=== PATIENT | female | born 1945 | race Caucasian/White ===

== ENCOUNTER 2019-07-23 11:20 | Outpatient (CLI) | payer MEDICARE, SELFPAY ==
[2019-07-23 11:40] LABS: Add Urine Microscopic? YES; Appearance Urine Clear (Clear); Basophils Absolute Auto 0.11 K/mm3 (0.00-0.10); Basophils Percent Auto 1.7 % (0.0-1.0); Bilirubin Urine Negative (Negative); Blood Urine Negative (Negative); Color Urine Yellow (Yellow); Eosinophils Absolute Auto 0.39 K/mm3 (0.02-0.50); Glucose Urine UA Negative (Negative); Hematocrit 42.4 % (35.0-42.0); Hemoglobin 13.6 g/dL (11.7-13.8); Immature Granulocyte Absolute 0.02 K/mm3 (0.00-0.00); Immature Granulocyte Percent A 0.3 % (0.0-0.0); Ketones Urine Negative (Negative); Leukocyte Esterase Ur 1+ LEU/UL (Negative); Lymphocytes Absolute Auto 1.76 K/mm3 (1.10-4.50); Mean Corpuscular HGB Conc 32.1 g/dL (32.0-36.0); Mean Corpuscular Hemoglobin 28.2 pg (27.0-31.0); Monocytes Absolute Auto 0.83 K/mm3 (0.10-0.90); Monocytes Percent Auto 12.7 % (2.0-11.0); Neutrophils Absolute Auto 3.4 K/mm3 (1.7-7.2); Neutrophils Percent Auto 52.3 % (50.0-70.0); Nitrate Urine Negative (Negative); Platelet Count Result 201 K/mm3 (150-420); Protein Urine Negative (Negative); Red Blood Count 4.82 M/mm3 (4.20-5.40); Red Cell Distribution Width 13.5 % (11.6-14.4); Specific Grav Ur 1.025 (1.010-1.020); Urobilinogen Urine 0.2 mg/dL (0.2-1.0); White Blood Count 6.5 K/mm3 (4.8-10.8); pH Urine 5.5 (5.0-8.0)
[2019-07-23 11:59] LABS: Bacteria Urine 1+ /hpf; RBC Urine None seen /hpf (0-2); Squamous Epithelial Cell Urine Few /hpf (Few); WBC Urine 0-3 /hpf (0-3)
[2019-07-23 13:14] LABS: Albumin Level 4.1 g/dL (3.4-5.0); Anion Gap 14.9 mmol/L (7-16); Blood Urea Nitrogen 27 mg/dL (7-18); Carbon Dioxide 28 mmol/L (21-32); Chloride 103 mmol/L (98-108); Estimated Glomerular Filt Rate 53; Glucose 129 mg/dL (70-99); Osmolality Calculated 299 mOsm/kg (285-295); Phosphorus 3.7 mg/dL (2.6-4.7); Potassium 4.9 mmol/L (3.5-5.1); Sodium 141 mmol/L (136-145)
== END 2019-07-23 11:21 | disposition home or self-care (01) ==
PROVIDERS: PCP Family Medicine
DX: I12.0 Hypertensive chronic kidney disease with stage 5 chronic kidney disease or end stage renal disease (principal); R82.90 Unspecified abnormal findings in urine
CPT/HCPCS: 36415; 80069; 81001; 85025; 87086

== ENCOUNTER 2019-10-11 12:49 | Outpatient (CLI) | payer MEDICARE, BC, SELFPAY ==
--- NOTE | ~2019-10-11 | XR_ITS ---
EXAMINATION: XR knee RT 3V DATE: 10/11/2019 13:16 INDICATION: Right knee arthroplasty. TECHNIQUE: 3 views of right knee were obtained. COMPARISON: Right knee radiographs 02/04/2017 FINDINGS: There is a total right knee arthroplasty without resurfacing in near-anatomic alignment. No periprosthetic lucency to suggest loosening or infection. No fracture. There is moderate patellofemo ral compartment osteoarthritis. No knee joint effusion. IMPRESSION: 1. Total right knee arthroplasty in near-anatomic alignment. 2. Moderate patellofemoral compartment osteoarthritis. Reviewed, dictated and finalized at location A.
--- NOTE | ~2019-10-11 | MM_ITS ---
EXAMINATION: MM screening isha BI w ashleigh HISTORY: Screening mammogram TECHNIQUE: Craniocaudal and mediolateral oblique 3-D tomosynthesis images were obtained and synthetic 2-D images were generated. CAD analysis was submitted and interpreted. COMPARISON: Comparison to multiple prior studies sequentially, with oldest reviewed study dated 07/08. BREAST PARENCHYMAL COMPOSITION: There are scattered areas of fibroglandular density. FINDINGS: Stable appearance to left breast masses. There is no evidence of suspicious mass, calcifica tion, or architectural distortion to suggest malignancy in either breast. There has been no suspiciou s interval change. IMPRESSION: 1. No mammographic evidence of malignancy. 2. Recommend routine screening mammography in one year. BI-RADS Category 2: Benign finding(s). Reviewed, dictated and finalized at location A.
--- NOTE | ~2019-10-11 | XR_ITS ---
EXAMINATION: XR knee LT 3V DATE: 10/11/2019 13:16 INDICATION: Left knee arthroplasty. TECHNIQUE: 3 views of left knee were obtained. COMPARISON: None. FINDINGS: There is a total left knee arthroplasty with patellar resurfacing in near-anatomic alignmen t. No periprosthetic lucency to suggest loosening or infection. No fracture. No knee joint effusion. IMPRESSION: 1. Total left knee arthroplasty in near-anatomic alignment. Reviewed, dictated and finalized at location A.
== END 2019-10-11 12:50 | disposition home or self-care (01) ==
LOC: CHSIMG 12:52
PROVIDERS: PCP Family Medicine; Visit Provider Obstetrics & Gynecology
DX: Z12.31 Encounter for screening mammogram for malignant neoplasm of breast (principal); Z96.652 Presence of left artificial knee joint; Z96.651 Presence of right artificial knee joint
CPT/HCPCS: 73562; 77063; 77067

== ENCOUNTER 2020-02-14 08:06 | Outpatient (CLI) | payer MEDICARE, SELFPAY ==
[2020-02-14 08:26] LABS: Basophils Percent Auto 1.6 % (0.0-1.0); Eosinophils Absolute Auto 0.36 K/mm3 (0.02-0.50); Eosinophils Percent Auto 5.9 % (1.0-6.0); Hematocrit 40.9 % (35.0-42.0); Hemoglobin 13.1 g/dL (11.7-13.8); Immature Granulocyte Absolute 0.03 K/mm3 (0.00-0.00); Immature Granulocyte Percent A 0.5 % (0.0-0.0); Lymphocytes Absolute Auto 1.76 K/mm3 (1.10-4.50); Lymphocytes Percent Auto 28.7 % (18.0-42.0); Mean Corpuscular Hemoglobin 28.3 pg (27.0-31.0); Mean Corpuscular Volume 88.3 fL (78.0-102.0); Mean Platelet Volume 11.2 fl (9.2-11.8); Monocytes Absolute Auto 0.66 K/mm3 (0.10-0.90); Monocytes Percent Auto 10.7 % (2.0-11.0); Neutrophils Absolute Auto 3.2 K/mm3 (1.7-7.2); Neutrophils Percent Auto 52.6 % (50.0-70.0); Platelet Count Result 188 K/mm3 (150-420); Red Blood Count 4.63 M/mm3 (4.20-5.40); Red Cell Distribution Width 13.3 % (11.6-14.4); White Blood Count 6.1 K/mm3 (4.8-10.8)
[2020-02-14 09:13] LABS: Albumin Level 3.9 g/dL (3.4-5.0); Blood Urea Nitrogen 16 mg/dL (7-18); Calcium 9.2 mg/dL (8.5-10.1); Carbon Dioxide 28 mmol/L (21-32); Estimated Glomerular Filt Rate 57; Glucose 135 mg/dL (70-99); Phosphorus 3.4 mg/dL (2.6-4.7)
[2020-02-14 09:19] LABS: Anion Gap 9 mmol/L (8-16); Chloride 106 mmol/L (98-108); Osmolality Calculated 299 mOsm/kg (285-295); Potassium 4.7 mmol/L (3.5-5.1); Sodium 143 mmol/L (136-145)
[2020-02-14 11:28] LABS: Add Urine Microscopic? YES; Appearance Urine Clear (Clear); Bilirubin Urine Negative (Negative); Blood Urine Negative (Negative); Color Urine Yellow (Yellow); Glucose Urine UA Negative (Negative); Ketones Urine Negative (Negative); Leukocyte Esterase Ur 1+ (Negative); Nitrate Urine Negative (Negative); Protein Urine Negative (Negative); Specific Grav Ur 1.025 (1.010-1.020); Urobilinogen Urine 0.2 mg/dL (0.2-1.0); pH Urine 5.5 (5.0-8.0)
[2020-02-14 11:34] LABS: RBC Urine 0-2 /hpf (0-2)
[2020-02-14 11:35] LABS: Bacteria Urine 1+ /hpf; Squamous Epithelial Cell Urine Few /hpf (Few)
[2020-02-14 12:14] LABS: Creatinine Urine 105.84 mg/dL (40-278); Total Protein Urine Random 11.7 mg/dL (0.0-11.9)
[2020-02-17 09:40] LABS: Vitamin D 25 Hydroxy 34 ng/mL (30-100)
== END 2020-02-14 08:07 | disposition home or self-care (01) ==
LOC: CHSLAB 08:12
PROVIDERS: PCP Family Medicine
DX: E55.9 Vitamin D deficiency, unspecified (principal); I15.0 Renovascular hypertension; N18.2 Chronic kidney disease, stage 2 (mild)
CPT/HCPCS: 36415; 80069; 81001; 82306; 82570; 84156; 85025

== ENCOUNTER 2020-03-30 09:54 | Outpatient (CLI) | payer MEDICARE, SELFPAY ==
[2020-03-30 10:04] LABS: Basophils Absolute Auto 0.11 K/mm3 (0.00-0.10); Basophils Percent Auto 1.4 % (0.0-1.0); Eosinophils Absolute Auto 0.41 K/mm3 (0.02-0.50); Eosinophils Percent Auto 5.4 % (1.0-6.0); Hematocrit 41.1 % (35.0-42.0); Hemoglobin 13.2 g/dL (11.7-13.8); Immature Granulocyte Absolute 0.03 K/mm3 (0.00-0.00); Immature Granulocyte Percent A 0.4 % (0.0-0.0); Lymphocytes Absolute Auto 1.78 K/mm3 (1.10-4.50); Lymphocytes Percent Auto 23.5 % (18.0-42.0); Mean Corpuscular HGB Conc 32.1 g/dL (32.0-36.0); Mean Corpuscular Hemoglobin 27.8 pg (27.0-31.0); Mean Corpuscular Volume 86.5 fL (78.0-102.0); Mean Platelet Volume 11.3 fl (9.2-11.8); Monocytes Absolute Auto 0.62 K/mm3 (0.10-0.90); Monocytes Percent Auto 8.2 % (2.0-11.0); Neutrophils Absolute Auto 4.6 K/mm3 (1.7-7.2); Neutrophils Percent Auto 61.1 % (50.0-70.0); Platelet Count Result 199 K/mm3 (150-420); Red Blood Count 4.75 M/mm3 (4.20-5.40); Red Cell Distribution Width 13.4 % (11.6-14.4); White Blood Count 7.6 K/mm3 (4.8-10.8)
[2020-03-30 10:26] LABS: Alanine Aminotransferase 56 U/L (14-59); Alkaline Phosphatase 78 U/L (46-116); Anion Gap 11 mmol/L (8-16); Aspartate Amino Transferase 25 U/L (15-37); Bilirubin,Total 0.5 mg/dL (0.00-1.00); Blood Urea Nitrogen 20 mg/dL (7-18); Calcium 9.5 mg/dL (8.5-10.1); Carbon Dioxide 25 mmol/L (21-32); Chloride 102 mmol/L (98-108); Cholesterol 144 mg/dL (0-200); Estimated Glomerular Filt Rate 42; Glucose 184 mg/dL (70-99); HDL Direct 42 mg/dL (40-60); LDL Cholesterol Calculated 56 mg/dL (<130); Osmolality Calculated 293 mOsm/kg (285-295); Potassium 4.3 mmol/L (3.5-5.1); Sodium 138 mmol/L (136-145); Total Protein 7.1 g/dL (6.4-8.2); Triglycerides 230 mg/dL (0-150)
[2020-03-30 10:56] LABS: Thyroid Stimulating Hormone Reflex 1.12 u/IU/mL (0.36-3.74)
== END 2020-03-30 09:55 | disposition home or self-care (01) ==
LOC: CHSLAB 09:56
PROVIDERS: PCP Family Medicine; Visit Provider Family Medicine
DX: E03.9 Hypothyroidism, unspecified (principal); E78.5 Hyperlipidemia, unspecified
CPT/HCPCS: 36415; 80053; 80061; 84443; 85025

== ENCOUNTER 2020-09-01 10:07 | Outpatient (CLI) | payer MEDICARE, SELFPAY ==
[2020-09-01 10:22] LABS: Basophils Absolute Auto 0.12 K/mm3 (0.00-0.10); Basophils Percent Auto 1.7 % (0.0-1.0); Eosinophils Absolute Auto 0.34 K/mm3 (0.02-0.50); Eosinophils Percent Auto 4.8 % (1.0-6.0); Hematocrit 41.9 % (35.0-42.0); Hemoglobin 13.4 g/dL (11.7-13.8); Immature Granulocyte Absolute 0.03 K/mm3 (0.00-0.00); Immature Granulocyte Percent A 0.4 % (0.0-0.0); Lymphocytes Absolute Auto 1.67 K/mm3 (1.10-4.50); Lymphocytes Percent Auto 23.5 % (18.0-42.0); Mean Corpuscular Hemoglobin 27.9 pg (27.0-31.0); Mean Corpuscular Volume 87.3 fL (78.0-102.0); Mean Platelet Volume 11.4 fl (9.2-11.8); Monocytes Absolute Auto 0.68 K/mm3 (0.10-0.90); Monocytes Percent Auto 9.6 % (2.0-11.0); Neutrophils Absolute Auto 4.3 K/mm3 (1.7-7.2); Platelet Count Result 194 K/mm3 (150-420); Red Cell Distribution Width 13.2 % (11.6-14.4); White Blood Count 7.1 K/mm3 (4.8-10.8)
[2020-09-01 11:04] LABS: Albumin Level 3.8 g/dL (3.4-5.0); Anion Gap 10 mmol/L (8-16); Blood Urea Nitrogen 17 mg/dL (7-18); Calcium 9.1 mg/dL (8.5-10.1); Carbon Dioxide 27 mmol/L (21-32); Chloride 103 mmol/L (98-108); Estimated Glomerular Filt Rate 56; Glucose 135 mg/dL (70-99); Osmolality Calculated 293 mOsm/kg (285-295); Phosphorus 3.8 mg/dL (2.6-4.7); Potassium 4.5 mmol/L (3.5-5.1); Sodium 140 mmol/L (136-145)
[2020-09-01 12:44] LABS: Appearance Urine Clear (Clear); Bilirubin Urine Negative (Negative); Blood Urine Negative (Negative); Glucose Urine UA Negative (Negative); Ketones Urine Negative (Negative); Leukocyte Esterase Ur 1+ (Negative); Nitrate Urine Negative (Negative); Protein Urine Negative (Negative); Specific Grav Ur 1.025 (1.010-1.020); Urobilinogen Urine 0.2 mg/dL (0.2-1.0); pH Urine 5.5 (5.0-8.0)
[2020-09-01 12:48] LABS: Creatinine Urine 167.58 mg/dL (40-278); Total Protein Urine Random 17.5 mg/dL (0.0-11.9)
[2020-09-01 12:51] LABS: Add Urine Microscopic? YES; Bacteria Urine 2+ /hpf; Color Urine Light Yellow (Yellow); RBC Urine 0-2 /hpf (0-2); Squamous Epithelial Cell Urine Few /hpf (Few)
[2020-09-01 12:52] LABS: Mucus Urine Moderate /lpf
[2020-09-05 14:09] LABS: Vitamin D 25 Hydroxy 32 ng/mL (30-100)
== END 2020-09-01 10:08 | disposition home or self-care (01) ==
LOC: CHSLAB 10:11
PROVIDERS: PCP Family Medicine; Visit Provider Internal Medicine Nephrology
DX: E55.9 Vitamin D deficiency, unspecified (principal); I15.0 Renovascular hypertension; N18.2 Chronic kidney disease, stage 2 (mild)
CPT/HCPCS: 36415; 80069; 81001; 82306; 82570; 84156; 85025

== ENCOUNTER 2020-10-13 08:45 | Outpatient (CLI) | payer MEDICARE, BC, SELFPAY ==
--- NOTE | ~2020-10-13 | MM_ITS ---
EXAMINATION: MM screening isha BI w ashleigh HISTORY: Screening TECHNIQUE: Craniocaudal and mediolateral oblique 3-D tomosynthesis images were obtained and synthetic 2-D images were generated. CAD analysis was submitted and interpreted. COMPARISON: Comparison to multiple prior studies sequentially, with oldest reviewed study dated 07/13. BREAST PARENCHYMAL COMPOSITION: There are scattered areas of fibroglandular density. FINDINGS: Stable benign-appearing left breast masses. There is no evidence of suspicious mass, calcif ication, or architectural distortion to suggest malignancy in either breast. There has been no suspic ious interval change. IMPRESSION: 1. No mammographic evidence of malignancy. 2. Recommend routine screening mammography in one year. BI-RADS Category 2: Benign finding(s). Reviewed, dictated and finalized at location A.
== END 2020-10-13 08:46 | disposition home or self-care (01) ==
LOC: CHSIMG 08:49
PROVIDERS: PCP Family Medicine; Visit Provider Obstetrics & Gynecology
DX: Z12.31 Encounter for screening mammogram for malignant neoplasm of breast (principal)
CPT/HCPCS: 77063; 77067

== ENCOUNTER 2021-07-16 11:26 | Outpatient (CLI) | payer MEDICARE, BC, SELFPAY ==
--- NOTE | ~2021-07-16 | XR_ITS ---
XR lumbar spine 2-3V DATE: 07/16/2021 11:48 INDICATION: Left lower back pain for 2 months TECHNIQUE: AP, lateral, coned lateral lumbosacral views COMPARISON: None FINDINGS: Diffuse osteopenia. There is mild rotatory levoscoliosis. There is multilevel degenerative disc disease, moderate L1 to, moderately severe at L2-3, severe at L 3-4 on the right, mild at L4-5. There is mild retrolisthesis at L2-3 and L3-4. There is grade 1 anterolisthesis at L1-2. No fracture or bone destruction is detected. The sacroiliac joints are unremarkable. Surgical clips overlie the right upper and lower quadrants of the abdomen. IMPRESSION: Mild rotatory levoscoliosis Multilevel degenerative disc disease, most pronounced at L2-3 and L3-4 Reviewed, dictated and finalized at location A.
== END 2021-07-16 11:27 | disposition home or self-care (01) ==
LOC: CHSIMG 11:30
PROVIDERS: PCP Family Medicine; Visit Provider Family Medicine
DX: M54.50 Low back pain, unspecified (principal)
CPT/HCPCS: 72100

== ENCOUNTER 2021-08-15 14:23 | Outpatient (CLI) | payer MEDICARE, SELFPAY ==
[2021-08-15 14:49] LABS: Influenza Control Valid (Valid)
== END 2021-08-15 14:24 | disposition home or self-care (01) ==
LOC: CHSLAB 14:26
PROVIDERS: PCP Family Medicine; Visit Provider Family Medicine
DX: R05.9 Cough, unspecified (principal)
CPT/HCPCS: 87804

== ENCOUNTER 2021-08-24 10:04 | Outpatient (CLI) | payer MEDICARE, SELFPAY ==
[2021-08-24 10:22] LABS: Hemoglobin 13.4 g/dL (11.7-13.8); Mean Corpuscular HGB Conc 31.9 g/dL (32.0-36.0); Mean Corpuscular Hemoglobin 28.3 pg (27.0-31.0); Mean Corpuscular Volume 88.6 fL (78.0-102.0); Mean Platelet Volume 11.1 fl (9.2-11.8); Platelet Count Result 209 K/mm3 (150-420); Red Blood Count 4.74 M/mm3 (4.20-5.40); Red Cell Distribution Width 13.4 % (11.6-14.4); White Blood Count 8.5 K/mm3 (4.8-10.8)
[2021-08-24 10:27] LABS: Add Urine Microscopic? YES; Appearance Urine Clear (Clear); Bilirubin Urine Negative (Negative); Blood Urine Negative (Negative); Color Urine Light Yellow (Yellow); Glucose Urine UA Negative (Negative); Ketones Urine Negative (Negative); Leukocyte Esterase Ur 1+ LEU/UL (Negative); Nitrate Urine Negative (Negative); Protein Urine Negative (Negative); Specific Grav Ur 1.025 (1.010-1.020); Urobilinogen Urine 0.2 mg/dL (0.2-1.0)
[2021-08-24 10:34] LABS: RBC Urine 0-2 /hpf (0-2)
[2021-08-24 10:35] LABS: Bacteria Urine Trace /hpf; Squamous Epithelial Cell Urine Few /hpf (Few)
[2021-08-24 10:36] LABS: Band Neutrophils Percent 0 % (0-6); Eosinophils Absolute Manual 0.93 K/mm3 (0.02-0.5); Eosinophils Percent Manual 11 % (1-6); Lymphocytes Absolute Manual 1.36 K/mm3 (1.1-4.5); Lymphocytes Percent Manual 16 % (18-44); Monocytes Absolute Manual 0.51 K/mm3 (0.1-0.90); Monocytes Percent Manual 6 % (3-9); Neutrophils Absolute Manual 5.69 K/mm3 (1.7-7.2); Neutrophils Percent Manual 67 % (46-73); Total Cells Counted 100
[2021-08-24 10:37] LABS: Platelet Estimate Adequate (Adequate)
[2021-08-24 10:47] LABS: Alanine Aminotransferase 39 U/L (14-59); Albumin Level 3.7 g/dL (3.4-5.0); Alkaline Phosphatase 77 U/L (46-116); Anion Gap 6 mmol/L (8-16); Aspartate Amino Transferase 20 U/L (15-37); Bilirubin,Total 0.4 mg/dL (0.00-1.00); Blood Urea Nitrogen 22 mg/dL (7-18); Calcium 9.3 mg/dL (8.5-10.1); Carbon Dioxide 29 mmol/L (21-32); Chloride 103 mmol/L (98-108); Cholesterol 135 mg/dL (0-200); Estimated Glomerular Filt Rate 50; Glucose 149 mg/dL (70-99); HDL Direct 38 mg/dL (40-60); LDL Cholesterol Calculated 50 mg/dL (<130); Osmolality Calculated 292 mOsm/kg (285-295); Phosphorus 3.7 mg/dL (2.6-4.7); Potassium 4.3 mmol/L (3.5-5.1); Sodium 138 mmol/L (136-145); Thyroid Stimulating Hormone 1.44 uIU/mL (0.36-3.74); Total Protein 7.5 g/dL (6.4-8.2); Triglycerides 234 mg/dL (0-150)
== END 2021-08-24 10:05 | disposition home or self-care (01) ==
LOC: CHSLAB 10:08
PROVIDERS: PCP Family Medicine; Visit Provider Internal Medicine Nephrology
DX: I15.0 Renovascular hypertension (principal); N18.2 Chronic kidney disease, stage 2 (mild); I10 Essential (primary) hypertension; E03.9 Hypothyroidism, unspecified; E78.00 Pure hypercholesterolemia, unspecified
CPT/HCPCS: 36415; 80053; 80061; 81001; 84100; 84443; 85025; 87086

== ENCOUNTER 2021-10-17 08:36 | Outpatient (CLI) | payer MEDICARE, SELFPAY ==
--- NOTE | ~2021-10-17 | MM_ITS ---
EXAMINATION: MM screening isha BI w ashleigh HISTORY: Screening mammogram TECHNIQUE: Craniocaudal and mediolateral oblique 3-D tomosynthesis images were obtained and synthetic 2-D images were generated. CAD analysis was submitted and interpreted. COMPARISON: 10/13/2020, 10/11/2019, 08/05/2018 bilateral screening mammogram examinations BREAST PARENCHYMAL COMPOSITION: There are scattered areas of fibroglandular density. FINDINGS: Stable circumscribed left axillary tail and axillary lymph nodes, unchanged since 08/05/2018 . There is no evidence of suspicious mass, calcification, or architectural distortion to suggest lawson gnancy in either breast. There has been no suspicious interval change. IMPRESSION: 1. No mammographic evidence of malignancy. 2. Recommend routine screening mammography in one year. BI-RADS Category 2: Benign finding(s). Reviewed, dictated and finalized at location A.
== END 2021-10-17 08:37 | disposition home or self-care (01) ==
LOC: CHSIMG 08:37
PROVIDERS: PCP Family Medicine; Visit Provider Obstetrics & Gynecology
DX: Z12.31 Encounter for screening mammogram for malignant neoplasm of breast (principal)
CPT/HCPCS: 77063; 77067

== ENCOUNTER 2022-07-30 10:05 | Outpatient (CLI) | payer MEDICARE, BC, SELFPAY ==
--- NOTE | ~2022-07-30 | XR_ITS ---
Wrist wrist Technique: PA, oblique, lateral, and ulnar deviation views were obtained. Clinical History: Fracture Findings: No acute fracture or dislocation is seen. There is severe osteophytosis of the first CMC cris int. Soft tissues are unremarkable. Impression: No fracture or dislocation seen. 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 Reviewed, dictated and finalized at location . Impression: No fracture or dislocation seen. 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
--- NOTE | ~2022-07-30 | XR_ITS ---
Left Hand Technique: PA, oblique, and lateral views were obtained. Clinical History: Pain Findings: No acute fracture or dislocation is seen. There is severe erosive osteoarthritis at the DIP joints. There is advanced osteoarthritis of the interphalangeal joint of the thumb. There is advance d osteophytosis of the first carpometacarpal joint. Soft tissues are unremarkable. 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 Severe osteoarthritis at the interphalangeal joint of the thumb and first CMC joint. Reviewed, dictated and finalized at location M. 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 Severe osteoarthritis at the interphalangeal joint of the thumb and first CMC j luisito.
== END 2022-07-30 10:06 | disposition home or self-care (01) ==
PROVIDERS: PCP Family Medicine; Visit Provider Family Medicine
DX: M25.539 Pain in unspecified wrist (principal); M19.042 Primary osteoarthritis, left hand; M19.032 Primary osteoarthritis, left wrist
CPT/HCPCS: 73110; 73130

== ENCOUNTER 2022-09-03 09:30 | Outpatient (CLI) | payer MEDICARE, BC, SELFPAY ==
[2022-09-03 09:48] LABS: Basophils Absolute Auto 0.11 K/mm3 (0.00-0.10); Basophils Percent Auto 1.8 % (0.0-1.0); Eosinophils Absolute Auto 0.42 K/mm3 (0.02-0.50); Eosinophils Percent Auto 6.9 % (1.0-6.0); Hemoglobin 12.9 g/dL (11.7-13.8); Immature Granulocyte Absolute 0.02 K/mm3 (0.00-0.00); Immature Granulocyte Percent A 0.3 % (0.0-0.0); Lymphocytes Absolute Auto 1.73 K/mm3 (1.10-4.50); Lymphocytes Percent Auto 28.2 % (18.0-42.0); Mean Corpuscular HGB Conc 31.5 g/dL (32.0-36.0); Mean Corpuscular Hemoglobin 28.2 pg (27.0-31.0); Mean Corpuscular Volume 89.7 fL (78.0-102.0); Mean Platelet Volume 11.4 fl (9.2-11.8); Monocytes Absolute Auto 0.61 K/mm3 (0.10-0.90); Neutrophils Absolute Auto 3.2 K/mm3 (1.7-7.2); Neutrophils Percent Auto 52.8 % (50.0-70.0); Platelet Count Result 200 K/mm3 (150-420); Red Blood Count 4.57 M/mm3 (4.20-5.40); Red Cell Distribution Width 13.7 % (11.6-14.4); White Blood Count 6.1 K/mm3 (4.8-10.8)
[2022-09-03 10:10] LABS: Hemoglobin A1C 6.4 % (<5.7)
[2022-09-03 10:45] LABS: Alanine Aminotransferase 32 U/L (14-59); Albumin Level 3.9 g/dL (3.4-5.0); Alkaline Phosphatase 78 U/L (46-116); Anion Gap 13 mmol/L (8-16); Aspartate Amino Transferase 16 U/L (15-37); Bilirubin,Total 0.5 mg/dL (0.00-1.00); Blood Urea Nitrogen 38 mg/dL (7-18); Calcium 9.6 mg/dL (8.5-10.1); Carbon Dioxide 27 mmol/L (21-32); Chloride 102 mmol/L (98-108); Cholesterol 164 mg/dL (0-200); Estimated Glomerular Filt Rate 48; Glucose 155 mg/dL (70-99); HDL Direct 42 mg/dL (40-60); LDL Cholesterol Calculated 75 mg/dL (<130); Osmolality Calculated 306 mOsm/kg (285-295); Phosphorus 3.9 mg/dL (2.6-4.7); Potassium 4.7 mmol/L (3.5-5.1); Sodium 142 mmol/L (136-145); Thyroid Stimulating Hormone 2.47 uIU/mL (0.36-3.74); Total Protein 7.2 g/dL (6.4-8.2); Triglycerides 237 mg/dL (0-150)
[2022-09-03 14:27] LABS: Appearance Urine Clear (Clear); Bilirubin Urine Negative (Negative); Blood Urine Negative (Negative); Color Urine Light Yellow (Yellow); Glucose Urine UA Negative (Negative); Ketones Urine Negative (Negative); Leukocyte Esterase Ur 1+ (Negative); Nitrate Urine Negative (Negative); Protein Urine Negative (Negative); Urobilinogen Urine 0.2 mg/dL (0.2-1.0)
[2022-09-03 14:32] LABS: Add Urine Microscopic? YES; RBC Urine 0-2 /hpf (0-2); Squamous Epithelial Cell Urine Few /hpf (Few); WBC Urine 0-3 /hpf (0-3)
[2022-09-03 14:33] LABS: Bacteria Urine None seen /hpf
== END 2022-09-03 09:31 | disposition home or self-care (01) ==
LOC: CHSLAB 09:34
PROVIDERS: PCP Family Medicine; Visit Provider Internal Medicine Nephrology
DX: N18.30 Chronic kidney disease, stage 3 unspecified (principal); I12.9 Hypertensive chronic kidney disease with stage 1 through stage 4 chronic kidney disease, or unspecified chronic kidney disease; E11.9 Type 2 diabetes mellitus without complications; E78.00 Pure hypercholesterolemia, unspecified; E03.9 Hypothyroidism, unspecified
CPT/HCPCS: 36415; 80053; 80061; 81001; 83036; 84100; 84443; 85025

== ENCOUNTER 2022-10-03 13:30 | Outpatient (CLI) | payer MEDICARE, SELFPAY ==
[2022-10-03 14:26] LABS: Anion Gap 7 mmol/L (8-16); Blood Urea Nitrogen 23 mg/dL (7-18); Calcium 9.6 mg/dL (8.5-10.1); Carbon Dioxide 30 mmol/L (21-32); Chloride 106 mmol/L (98-108); Estimated Glomerular Filt Rate 38; Glucose 120 mg/dL (70-99); Osmolality Calculated 300 mOsm/kg (285-295); Potassium 4.8 mmol/L (3.5-5.1); Sodium 143 mmol/L (136-145)
== END 2022-10-03 13:31 | disposition home or self-care (01) ==
LOC: CHSLAB 13:33
PROVIDERS: PCP Family Medicine; Visit Provider Internal Medicine Nephrology
DX: I12.9 Hypertensive chronic kidney disease with stage 1 through stage 4 chronic kidney disease, or unspecified chronic kidney disease (principal)
CPT/HCPCS: 36415; 80048

== ENCOUNTER 2022-10-09 09:51 | Outpatient (CLI) | payer MEDICARE, SELFPAY ==
[2022-10-09 10:32] LABS: Anion Gap 9 mmol/L (8-16); Blood Urea Nitrogen 17 mg/dL (7-18); Calcium 9.3 mg/dL (8.5-10.1); Carbon Dioxide 29 mmol/L (21-32); Chloride 106 mmol/L (98-108); Estimated Glomerular Filt Rate 47; Glucose 147 mg/dL (70-99); Osmolality Calculated 302 mOsm/kg (285-295); Potassium 4.7 mmol/L (3.5-5.1); Sodium 144 mmol/L (136-145)
== END 2022-10-09 09:52 | disposition home or self-care (01) ==
LOC: CHSLAB 09:54
PROVIDERS: PCP Family Medicine; Visit Provider Internal Medicine Nephrology
DX: N18.2 Chronic kidney disease, stage 2 (mild) (principal)
CPT/HCPCS: 36415; 80048

== ENCOUNTER 2022-10-11 10:19 | Outpatient (CLI) | payer MEDICARE, BC, SELFPAY ==
--- NOTE | ~2022-10-11 | DEXA_ITS ---
Bone Density Report Name: TONI CR Age: 77 Sex: Female Ethnicity: White Date of : 1945 Indication: postmenopausal; screening for osteoporosis; height loss; asthma or emphysema; end stage renal disease; Referring Provider: Adriana, Pankaj Study: Bone densitometry was performed. Exam Date: October 11, 2022 Accession number: [id number] Bone Density: Region BMD T-score Z-score Classification AP Spine(L2, L3, L4) 1.158 0.7 3.4 Normal Femoral Neck (Left) 0.912 0.6 2.8 Normal Total Hip (Left) 1.048 0.9 2.8 Normal Femoral Neck (Right) 0.714 -1.2 1.0 Osteopenia Total Hip (Right) 0.976 0.3 2.3 Normal Femoral Neck Mean 0.813 -0.3 1.9 Normal Total Hip Mean 1.012 0.6 2.5 Normal World Health Organization criteria for BMD impression classify patients as: Normal (T-score at or above -1.0), Osteopenia (T-score between -1.0 and -2.5), or Osteoporosis (T-score at or below -2.5). 10-year Fracture Risk(1): Major Osteoporotic Fracture 10% Hip Fracture 1.9% Reported Risk Factors: [place] (), Neck BMD=0.714, BMI=42.1 (1) FRAX(R) Version 3.08. Fracture probability calculated for an untreated patient. Fracture probability may be lower if the patient has received treatment. Clinical Information Provided by Patient: Has used the following medications: Vitamin D Has the following medical conditions: Asthma or Emphysema, End stage renal disease Patient maximum height was 67 Menopause Age: 48 No regular weight bearing exercise Does not regularly consume dairy products Onset of menses at age 16 Number of children 2 Impression: The patient has low bone mass, based on the Right Femoral Neck T-score. Discussion: BONE DENSITY IS LOW AT ONE OR MORE SKELETAL SITES. This patient's lowest T-score is low at one or more skeletal sites. It meets the World Health Organization's (WHO) criteria for ?low bone mass? (T-score between -1.0 and -2.5). The patient's 10-year risk of fracture as calculated by FRAX is less than the threshold where pharmacological therapy is recommended by the National Osteoporosis Foundation (NOF). However, all treatment decisions require clinical judgment and consideration of individual patient factors, including patient preferences, comorbidities, previous drug use, risk factors not captured in the FRAX model (e.g., frailty, falls, vitamin D deficiency, increased bone turnover, interval significant decline in bone density) and possible under or overestimation of fracture risk by FRAX. The patient should follow a healthful lifestyle (good nutrition with adequate calcium and vitamin D, and appropriate weight-bearing exercise). Follow-Up: Consider repeating this study in 2 to 3 years to reassess this patient's status, or sooner if there is some new clinical indication. Reported by: Dr. Quinton Elizondo on 10/11/2022 11:07:00 AM.
== END 2022-10-11 10:20 | disposition home or self-care (01) ==
LOC: CHSIMG 10:21
PROVIDERS: PCP Family Medicine; Visit Provider Family Medicine
DX: Z78.0 Asymptomatic menopausal state (principal); M85.851 Other specified disorders of bone density and structure, right thigh
CPT/HCPCS: 77080

== ENCOUNTER 2022-11-15 11:16 | Outpatient (CLI) | payer MEDICARE, SELFPAY ==
[2022-11-15 11:31] LABS: Basophils Absolute Auto 0.09 K/mm3 (0.00-0.10); Basophils Percent Auto 1.3 % (0.0-1.0); Eosinophils Absolute Auto 0.55 K/mm3 (0.02-0.50); Eosinophils Percent Auto 7.8 % (1.0-6.0); Hematocrit 39.4 % (35.0-42.0); Hemoglobin 12.6 g/dL (11.7-13.8); Immature Granulocyte Absolute 0.04 K/mm3 (0.00-0.00); Immature Granulocyte Percent A 0.6 % (0.0-0.0); Lymphocytes Absolute Auto 1.62 K/mm3 (1.10-4.50); Lymphocytes Percent Auto 22.9 % (18.0-42.0); Mean Corpuscular Hemoglobin 28.8 pg (27.0-31.0); Mean Platelet Volume 11.3 fl (9.2-11.8); Monocytes Absolute Auto 0.72 K/mm3 (0.10-0.90); Monocytes Percent Auto 10.2 % (2.0-11.0); Neutrophils Percent Auto 57.2 % (50.0-70.0); Platelet Count Result 193 K/mm3 (150-420); Red Blood Count 4.38 M/mm3 (4.20-5.40); Red Cell Distribution Width 13.6 % (11.6-14.4); White Blood Count 7.1 K/mm3 (4.8-10.8)
[2022-11-15 12:24] LABS: Anion Gap 6 mmol/L (8-16); Blood Urea Nitrogen 22 mg/dL (7-18); Calcium 9.4 mg/dL (8.5-10.1); Carbon Dioxide 30 mmol/L (21-32); Chloride 105 mmol/L (98-108); Estimated Glomerular Filt Rate 54; Glucose 137 mg/dL (70-99); Osmolality Calculated 297 mOsm/kg (285-295); Potassium 4.4 mmol/L (3.5-5.1); Sodium 141 mmol/L (136-145)
== END 2022-11-15 11:17 | disposition home or self-care (01) ==
LOC: CHSLAB 11:19
PROVIDERS: PCP Family Medicine; Visit Provider Internal Medicine Nephrology
DX: N18.2 Chronic kidney disease, stage 2 (mild) (principal)
CPT/HCPCS: 36415; 80048; 85025

== ENCOUNTER 2022-12-17 12:49 | Outpatient (CLI) | payer MEDICARE, BC, SELFPAY ==
--- NOTE | ~2022-12-17 | MM_ITS ---
EXAMINATION: MM screening isha BI w ashleigh HISTORY: Screening mammogram TECHNIQUE: Craniocaudal and mediolateral oblique 3-D tomosynthesis images were obtained and synthetic 2-D images were generated. CAD analysis was submitted and interpreted. COMPARISON: 10/17/2021, 10/13/2020, 10/11/2019 bilateral screening mammogram examinations BREAST PARENCHYMAL COMPOSITION: There are scattered areas of fibroglandular density. FINDINGS: Stable low-density circumscribed upper outer quadrant approximately 5.6 mm opacity, likely an intramammary lymph node. Slightly diminished size of prominent left axillary lymph node since 10/10. Subtle grouped microcalcifications are suggested in the mid upper right breast. Diagnostic right mamm ogram with magnification views is recommended. Otherwise there is no evidence of suspicious mass, calcification, or architectural distortion to sugg est malignancy in either breast. There has been no other suspicious interval change. IMPRESSION: 1. Subtle grouped microcalcifications are suggested in the mid upper right breast; 2. Diagnostic right mammogram with magnification views is recommended BI-RADS Category 0: Incomplete: Needs additional imaging evaluation. Reviewed, dictated and finalized at location A. IMPRESSION: 1. Subtle grouped microcalcifications are suggested in the mid upper right [address] st; 2. Diagnostic right mammogram with magnification views is recommended BI-RADS Category 0: Incomplete: Needs additional imaging evaluation.
== END 2022-12-17 12:50 | disposition home or self-care (01) ==
LOC: CHSIMG 12:51
PROVIDERS: PCP Family Medicine; Visit Provider Obstetrics & Gynecology
DX: Z12.31 Encounter for screening mammogram for malignant neoplasm of breast (principal); R92.8 Other abnormal and inconclusive findings on diagnostic imaging of breast
CPT/HCPCS: 77063; 77067

== ENCOUNTER 2022-12-23 09:55 | Outpatient (RCR) | payer MEDICARE, BC, SELFPAY ==
--- NOTE | 2022-12-23 10:59 | OPREHPOC ---
Outpatient Therapy Plan of Care This is a Multidisciplinary Plan of Care that may contain components documented by all disciplines (PT, OT, and ST.) PT Problem 1 PT Problem #1 Knowledge Deficit PT Goal 1 Goal Patient to demonstrate independence with HEP Target Visit 5 PT Problem 2 PT Problem #2 Impaired Strength PT Goal 1 Goal Patient to demonstrate 5/5 B LE strength to return to house hold ambulation at PLOF Target Visit 10 PT Problem 3 PT Problem #3 Impaired Functional Mobil PT Goal 1 Goal 1. Patient to improve Tinetti Balance score by 5 pts to decrease fall risk 2. Patient to improve 5TSTS to 15 sec to decrease fall risk with house hold tasks and dressing 3. Patient to ambulate 800' during 6 min walk test to decrease fall risk with community ambulation Target Visit 10
--- NOTE | 2022-12-23 10:59 | PTOPEVAL1 ---
Assessment and note entered by Martina Colin DPT Evaluation Information Assessment Status Evaluation Diagnosis decreased balance Onset 12/16/22 Subjective Information Patient reports over the last few months she has noticed her balance has decreased. She reports she uses a cane at night when she gets up to use the bathroom but other moore does not use an AD. She reports difficulty with dressing, carrying objects around the house, and getting up to go to the bathroom. She reports she has to grab for cuellar and furniture to help with balance. She denies pain. Reported Pain Level Pain Score 0: Self Report Assessment PT Clinical Summary Patient is a 77 year old female who presents to PT with impaired balance. Patient demonstrates decreased R hip strength and impaired balance with Tinetti, 5TSTS, TUG and 6 min walk testing impairing her ability to dress, reach into cabinets and walk thorughout her house. Patient would benefit from skilled PT to address impairments and return to PLOF. Plan of Care Interventions Electrical Stimulation,Gait Training,Hot Pack/Cold Pack,Manual Therapy,Mechanical Traction,Neuro Re- education,Patient/Caregiver Educati,Therapeutic Activities,Therapeutic Exercise PT Services Indicated Yes Treatment Frequency and 2x weekly for 10 visits Duration These treatments will address the objective and functional deficits as defined above. The patient will be advanced safely and appropriately in order for the patient to progress towards his/her prior level of function. Additional exercises will be introduced and as well as a comprehensive home exercise program upon discharge, if needed, ?to ensure carryover of functional gains achieved in the clinic. This treatment plan has been reviewed and agreement upon by the patient.
--- NOTE | 2023-01-23 11:59 | OPREHPOC ---
Outpatient Therapy Plan of Care This is a Multidisciplinary Plan of Care that may contain components documented by all disciplines (PT, OT, and ST.) PT Problem 1 PT Problem #1 Knowledge Deficit PT Goal 1 Goal Patient to demonstrate independence with HEP Target Visit 5 Progress Met PT Problem 2 PT Problem #2 Impaired Strength PT Goal 1 Goal Patient to demonstrate 5/5 B LE strength to return to house hold ambulation at PLOF Target Visit 10 Progress Met PT Problem 3 PT Problem #3 Impaired Functional Mobil PT Goal 1 Goal 1. Patient to improve Tinetti Balance score by 5 pts to decrease fall risk 2. Patient to improve 5TSTS to 15 sec to decrease fall risk with house hold tasks and dressing 3. Patient to ambulate 800' during 6 min walk test to decrease fall risk with community ambulation Target Visit 10 Progress Met
--- NOTE | 2023-01-23 11:59 | PTOPDC ---
Assessment and note entered by Martina Colin DPT Evaluation Information Assessment Status Evaluation Diagnosis decreased balance Onset 12/16/22 Subjective Information Patient reports since start of PT she has noticed improved balance and strength. She reports she has not had any falls at home. She reports independence with HEP Reported Pain Level Pain Score 0: Self Report Assessment PT Clinical Summary Mrs. Freeman was seen for 10 visits of skilled PT and met all goals set. She improved strength, balance and endurance during POC with reports of no falls at home. She is independent with HEP and is appropriate for DC at this time. Plan of Care PT Services Indicated Yes
== END 2023-01-23 11:38 | disposition home or self-care (01) ==
LOC: CHSPT 09:55
PROVIDERS: PCP Family Medicine; Visit Provider Family Medicine
DX: R26.89 Other abnormalities of gait and mobility (principal)
CPT/HCPCS: 97110; 97112; 97150; 97161

== ENCOUNTER 2022-12-31 08:53 | Outpatient (CLI) | payer MEDICARE, BC, SELFPAY ==
--- NOTE | ~2022-12-31 | MM_ITS ---
EXAMINATION: MM diagnostic isha RT w ashleigh HISTORY: Subtle grouped microcalcifications suggested in the mid upper right breast on 12/17/2022 scre ening mammogram TECHNIQUE: Additional ML 3-D tomosynthesis images of the right breast were performed and synthetic 2- D images were generated. Magnification MLO and CC is. CAD analysis was submitted and interpreted. COMPARISON: 12/17/2022 bilateral screening mammogram FINDINGS: Occasional benign calcifications are noted. No malignant calcifications are detected. IMPRESSION: 1. No mammographic evidence of malignancy 2. Routine annual mammographic screening is recommended BI-RADS Category 2: Benign finding(s). Reviewed, dictated and finalized at location A.
== END 2022-12-31 08:54 | disposition home or self-care (01) ==
LOC: CHSIMG 08:55
PROVIDERS: PCP Family Medicine; Visit Provider Obstetrics & Gynecology
DX: R92.8 Other abnormal and inconclusive findings on diagnostic imaging of breast (principal)
CPT/HCPCS: 77061; 77065; G0279

== ENCOUNTER 2023-03-22 10:47 | Outpatient (CLI) | payer MEDICARE, BC, SELFPAY ==
[2023-03-22 11:17] LABS: Basophils Absolute Auto 0.08 K/mm3 (0.00-0.10); Basophils Percent Auto 1.4 % (0.0-1.0); Eosinophils Absolute Auto 0.33 K/mm3 (0.02-0.50); Eosinophils Percent Auto 5.8 % (1.0-6.0); Hematocrit 38.3 % (35.0-42.0); Hemoglobin 12.1 g/dL (11.7-13.8); Immature Granulocyte Absolute 0.01 K/mm3 (0.00-0.00); Immature Granulocyte Percent A 0.2 % (0.0-0.0); Lymphocytes Absolute Auto 1.28 K/mm3 (1.10-4.50); Lymphocytes Percent Auto 22.3 % (18.0-42.0); Mean Corpuscular HGB Conc 31.6 g/dL (32.0-36.0); Mean Corpuscular Hemoglobin 28.3 pg (27.0-31.0); Mean Corpuscular Volume 89.5 fL (78.0-102.0); Mean Platelet Volume 11.6 fl (9.2-11.8); Monocytes Absolute Auto 0.52 K/mm3 (0.10-0.90); Monocytes Percent Auto 9.1 % (2.0-11.0); Neutrophils Absolute Auto 3.5 K/mm3 (1.7-7.2); Neutrophils Percent Auto 61.2 % (50.0-70.0); Platelet Count Result 190 K/mm3 (150-420); Red Blood Count 4.28 M/mm3 (4.20-5.40); Red Cell Distribution Width 13.9 % (11.6-14.4); White Blood Count 5.7 K/mm3 (4.8-10.8)
[2023-03-22 11:31] LABS: Hemoglobin A1C 6.5 % (<5.7)
[2023-03-22 11:42] LABS: Alanine Aminotransferase 36 U/L (14-59); Albumin Level 3.8 g/dL (3.4-5.0); Alkaline Phosphatase 75 U/L (46-116); Anion Gap 6 mmol/L (8-16); Aspartate Amino Transferase 18 U/L (15-37); Bilirubin,Total 0.5 mg/dL (0.00-1.00); Blood Urea Nitrogen 20 mg/dL (7-18); Calcium 9.8 mg/dL (8.5-10.1); Carbon Dioxide 32 mmol/L (21-32); Chloride 102 mmol/L (98-108); Cholesterol 146 mg/dL (0-200); Estimated Glomerular Filt Rate 45; Glucose 150 mg/dL (70-99); HDL Direct 44 mg/dL (40-60); LDL Cholesterol Calculated 59 mg/dL (<130); Osmolality Calculated 295 mOsm/kg (285-295); Potassium 4.5 mmol/L (3.5-5.1); Sodium 140 mmol/L (136-145); Thyroid Stimulating Hormone 1.59 uIU/mL (0.36-3.74); Total Protein 6.8 g/dL (6.4-8.2); Triglycerides 216 mg/dL (0-150)
== END 2023-03-22 10:48 | disposition home or self-care (01) ==
PROVIDERS: PCP Family Medicine; Visit Provider Family Medicine
DX: E11.9 Type 2 diabetes mellitus without complications (principal); E78.00 Pure hypercholesterolemia, unspecified; E03.9 Hypothyroidism, unspecified; I10 Essential (primary) hypertension
CPT/HCPCS: 36415; 80053; 80061; 83036; 84443; 85025

== ENCOUNTER 2023-03-31 13:49 | Outpatient (CLI) | payer MEDICARE, BC, SELFPAY ==
--- NOTE | ~2023-03-31 | XR_ITS ---
XR ankle LT min 3V DATE: 03/31/2023 14:13 INDICATION: Left ankle injury 6 weeks ago. Lateral pain and swelling TECHNIQUE: 4 views COMPARISON: None FINDINGS: Small cortical fracture at the inferior tip of the lateral malleolus with overlying soft ti ssue swelling. The medial malleolus and posterior malleolus and the ankle mortise appears intact. Mild plantar calcaneal enthesopathy IMPRESSION: Small inferior lateral malleolar cortical fracture with mild overlying soft tissue swelli ng Reviewed, dictated and finalized at location B. [employer] IMPRESSION: Small inferior lateral malleolar cortical fracture with mild overly ing soft tissue swelling
== END 2023-03-31 13:50 | disposition home or self-care (01) ==
LOC: CHSIMG 13:52
PROVIDERS: PCP Family Medicine; Visit Provider Family Medicine
DX: S99.912A Unspecified injury of left ankle, initial encounter (principal); M79.89 Other specified soft tissue disorders
CPT/HCPCS: 73610

== ENCOUNTER 2023-05-07 14:59 | Outpatient (CLI) | payer MEDICARE, BC, SELFPAY ==
--- NOTE | ~2023-05-07 | XR_ITS ---
XR ankle LT min 3V DATE: 05/07/2023 15:20 INDICATION: Lateral ankle pain TECHNIQUE: 4 views COMPARISON: 03/31/2023 left ankle FINDINGS: Transverse fracture of uncertain age is noted at the proximal aspect of the fifth metatarsa l bone. There appears to be some sclerosis at the apposing fracture margins suggesting this is a chronic condition nurse lisa ununited fracture. Right foot radiographic examination is recommended if this area is of clinical interest. There is anterolateral soft tissue swelling of the ankle. No fracture or dislocation of the ankle or disruption of the ankle mortise is detected. No periosteal reaction or bone destruction. Mild plantar calcaneal enthesopathy, slight posterior calcaneal enthesopathy. 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 Calcaneal enthesopathy Reviewed, dictated and finalized at location B. [employer] IMPRESSION: Anterolateral right ankle soft tissue swelling; no ankle fracture o r dislocation Transverse likely chronic ununited fracture of the proximal fifth metatarsal isamar ne. Calcaneal enthesopathy
== END 2023-05-07 15:00 | disposition home or self-care (01) ==
LOC: CHSIMG 15:04
PROVIDERS: PCP Family Medicine; Visit Provider Family Medicine
DX: S99.912A Unspecified injury of left ankle, initial encounter (principal); M79.89 Other specified soft tissue disorders; M84.475K Pathological fracture, left foot, subsequent encounter for fracture with nonunion
CPT/HCPCS: 73610

== ENCOUNTER 2023-09-01 10:16 | Outpatient (CLI) | payer MEDICARE, BC, SELFPAY ==
[2023-09-01 10:40] LABS: Basophils Absolute Auto 0.08 K/mm3 (0.00-0.10); Basophils Percent Auto 1.3 % (0.0-1.0); Eosinophils Absolute Auto 0.28 K/mm3 (0.02-0.50); Eosinophils Percent Auto 4.7 % (1.0-6.0); Hematocrit 38.8 % (35.0-42.0); Hemoglobin 12.2 g/dL (11.7-13.8); Immature Granulocyte Absolute 0.02 K/mm3 (0.00-0.00); Immature Granulocyte Percent A 0.3 % (0.0-0.0); Lymphocytes Absolute Auto 1.36 K/mm3 (1.10-4.50); Lymphocytes Percent Auto 22.9 % (18.0-42.0); Mean Corpuscular HGB Conc 31.4 g/dL (32-36); Mean Corpuscular Hemoglobin 27.7 pg (27.0-31.0); Mean Platelet Volume 10.7 fl (9.2-11.8); Monocytes Absolute Auto 0.62 K/mm3 (0.10-0.90); Monocytes Percent Auto 10.4 % (2.0-11.0); Neutrophils Absolute Auto 3.58 K/mm3 (1.70-7.20); Neutrophils Percent Auto 60.4 % (50.0-70.0); Platelet Count Result 187 K/mm3 (150-420); Red Blood Count 4.41 M/mm3 (4.20-5.40); Red Cell Distribution Width 13.7 % (11.6-14.4); White Blood Count 5.9 K/mm3 (4.8-10.8)
[2023-09-01 10:54] LABS: Hemoglobin A1C 6.5 % (<5.7)
[2023-09-01 11:11] LABS: Alanine Aminotransferase 29 U/L (14-59); Albumin Level 3.6 g/dL (3.4-5.0); Alkaline Phosphatase 65 U/L (46-116); Anion Gap 11 mmol/L (4-12); Aspartate Amino Transferase 20 U/L (15-37); Bilirubin,Total 0.4 mg/dL (0.00-1.00); Blood Urea Nitrogen 17 mg/dL (7-18); Calcium 9.2 mg/dL (8.5-10.1); Carbon Dioxide 27 mmol/L (21-32); Chloride 103 mmol/L (98-108); Cholesterol 164 mg/dL (0-200); Estimated Glomerular Filt Rate 48; Glucose 146 mg/dL (70-99); HDL Direct 43 mg/dL (40-60); LDL Cholesterol Calculated 73 mg/dL (<130); Osmolality Calculated 296 mOsm/kg (285-295); Phosphorus 3.6 mg/dL (2.6-4.7); Potassium 4.2 mmol/L (3.5-5.1); Sodium 141 mmol/L (136-145); Thyroid Stimulating Hormone 2.06 uIU/mL (0.36-3.74); Triglycerides 240 mg/dL (0-150)
[2023-09-01 14:05] LABS: Appearance Urine Clear (Clear); Bilirubin Urine Negative (Negative); Blood Urine Negative (Negative); Color Urine Light Yellow (Yellow); Glucose Urine UA Negative (Negative); Ketones Urine Negative (Negative); Protein Urine Negative (Negative); Urobilinogen Urine 0.2 mg/dL (0.2-1.0)
[2023-09-01 14:30] LABS: Add Urine Microscopic? YES; RBC Urine None seen /hpf (0-2); Squamous Epithelial Cell Urine Few /hpf (Few)
[2023-09-01 14:31] LABS: Mucus Urine Few /lpf
[2023-09-01 17:41] LABS: Leukocyte Esterase Ur 2+ (Negative); Nitrate Urine Negative (Negative)
== END 2023-09-01 10:17 | disposition home or self-care (01) ==
LOC: CHSLAB 10:20
PROVIDERS: PCP Family Medicine; Visit Provider Internal Medicine Nephrology
DX: I15.0 Renovascular hypertension (principal); N18.30 Chronic kidney disease, stage 3 unspecified; E11.9 Type 2 diabetes mellitus without complications; E78.00 Pure hypercholesterolemia, unspecified; E03.9 Hypothyroidism, unspecified
CPT/HCPCS: 36415; 80053; 80061; 81001; 83036; 84100; 84443; 85025; 87086

== ENCOUNTER 2024-01-05 13:22 | Outpatient (CLI) | payer MEDICARE, BC, SELFPAY ==
--- NOTE | ~2024-01-05 | MM_ITS ---
EXAMINATION: MM screening isha BI w ashleigh HISTORY: Screening TECHNIQUE: Craniocaudal and mediolateral oblique 3-D tomosynthesis images were obtained and synthetic 2-D images were generated. CAD analysis was submitted and interpreted. COMPARISON: Comparison to multiple prior studies sequentially, with oldest reviewed study dated 08/05. BREAST PARENCHYMAL COMPOSITION: Not dense: There are scattered areas of fibroglandular density. FINDINGS: There is no evidence of suspicious mass, calcification, or architectural distortion to sugg est malignancy in either breast. There has been no suspicious interval change. IMPRESSION: 1. No mammographic evidence of malignancy. 2. Recommend routine screening mammography in one year. BI-RADS Category 1: Negative Reviewed, dictated and finalized at location B.
== END 2024-01-05 13:23 | disposition home or self-care (01) ==
LOC: CHSIMG 13:27
PROVIDERS: PCP Family Medicine; Visit Provider Obstetrics & Gynecology
DX: Z12.31 Encounter for screening mammogram for malignant neoplasm of breast (principal)
CPT/HCPCS: 77063; 77067

== ENCOUNTER 2024-01-10 20:40 | Outpatient (CLI) | payer MEDICARE, BC, SELFPAY ==
--- NOTE | 2024-02-02 10:53 | P.SLEEP_ITS ---
Sleep Study Date of Study: 01/10/24 Ordering Provider: Pankaj Wrihgt, Interpreting Physician: Isabell Majnarrez, DO Sleep Study Type: Polysomnogram Height: 1.68 m Weight: 107.501 kg Body Mass Index: 38.2 Neck Circumference (inches): 16.25 [place]: 8 Reason for Sleep Study Needs new CPAP equipment Sleep History The patient is a 78-year-old female that had a sleep study ordered by her primary care to get new CPAP supplies. The patient denies awakening from sleep short of breath. She denies awakening night with heartburn, belching or cough. She frequently snores and is frequently loud enough that others complain. She frequently has trouble sleeping when she has a cold. She denies waking up gasping for air throughout the night. She frequently has breathing problems at night observed by herself or others. She denies sweating excessively at night. She denies having heart palpitations or irregular heartbeats during the night. She frequently falls asleep during the day and occasionally falls asleep while driving. She denies sleep paralysis, cataplexy and hypnagogic / hypnopompic hallucinations. She denies feeling afraid of going to sleep. She denies having nightmares. She denies remembering her dreams. She occasionally has thoughts racing through her mind. She rarely feels sad, depressed or anxious. She denies having muscular tension. She occasionally notices parts of her body jerk . She rarely kicks during the night. She denies having crawling and aching feelings in her legs and denies having leg pain during the night. She denies grinding her teeth during sleep and denies awakening with morning jaw pain. She denies being bothered by pain during the day and denies being awakened by pain during the night. She denies waking up feeling stiff in the morning. She denies waking up with sore or achy muscles. She denies waking up with pain in the neck, spine or other joints. The patient goes to bed at midnight on both weekdays and weekends. It takes her 30-40 minutes to fall asleep. She does not typically wake up during the night but if she does she will stay in bed and a can take up to an hour to fall back asleep. She wakes up between 7:30-8:30 a.m. on both weekdays and weekends. She typically gets 8-8.5 hours of sleep per night. She will stay in bed for 1.5-2 hours after waking up in the morning. She currently lives alone. She denies consuming any caffeinated beverages within 2 hours of bedtime. She denies engaging in physical exercise before bedtime. She will watch television before falling asleep. She will take naps in the afternoon or the evening and they are refreshing. She denies consuming caffeinated beverages throughout the day. She quit smoking cigarettes 20 years ago. She consumes alcoholic beverages occasionally. [facility] Past Medical History Medical History Arthritis Asthma CKD (chronic kidney disease) stage 3, GFR 30-59 ml/min COPD (chronic obstructive pulmonary disease) Furuncle HTN (hypertension), benign Hyperlipidemia Hypertension Hypothyroidism Low vitamin D level Obesity, Class II, BMI 35-39.9 ALEXYS (obstructive sleep apnea) Surgical History Surgical History History of cholecystectomy History of hysterectomy History of oophorectomy Total knee replacement status Family History Family History Mother , Age 70's Hypertension Heart disease Father Heart disease Social History Social History Smoking status: Former smoker Alcohol intake: current Alcohol use details: Wine Medications Home Medications Medication Instructions Recorded Confirmed Type amlodipine 10 mg tablet 10 mg PO DAILY 02/09/19 12/28/20 History hydrochlorothiazide 12.5 mg capsule 12.5 mg PO DAILY 02/09/19 12/28/20 History mirabegron 25 mg tablet,extended 25 mg PO DAILY 02/09/19 12/28/20 History release 24 hr (Myrbetriq) olmesartan 40 mg tablet 40 mg PO DAILY 02/09/19 12/28/20 History timolol 0.5 % eye drops 1 drop ophthalmic (eye) Q12H #5 mL 02/09/19 12/28/20 Rx venlafaxine 75 mg capsule,extended 75 mg PO DAILY 02/09/19 12/28/20 History release 24 hr atorvastatin 20 mg tablet 20 mg PO DAILY 03/02/19 12/28/20 History bimatoprost 0.01 % eye drops 1 drop ophthalmic (eye) QPM 03/02/19 12/28/20 History (Alejandra) levothyroxine 50 mcg tablet 50 mcg PO DAILY 03/02/19 12/28/20 History multivitamin-ferrous 1 tablet PO DAILY 03/25/19 12/28/20 History fumarate-folic acid 18 mg-400 mcg tablet (Centrum Complete) aspirin 81 mg tablet,delayed 81 mg PO DAILY 05/21/19 12/28/20 History release cholecalciferol (vitamin D3) 50 2,000 unit PO DAILY 05/21/19 12/28/20 History mcg (2,000 unit) chewable tablet mecobalamin (vitamin B12) 5,000 mcg PO 05/21/19 12/28/20 History mcg disintegrating tablet metoprolol succinate 25 mg 100 mg PO DAILY 03/29/20 12/28/20 History tablet,extended release 24 hr fluticasone 100 mcg-salmeterol 50 1 ea inhalation BID 90 days #180 ea 11/29/20 12/28/20 Rx mcg/dose blistr powdr for inhalation (Advair Diskus) albuterol sulfate 90 mcg/actuation 1 inh inhalation Q4-6H PRN 12/28/20 12/28/20 Rx aerosol inhaler shortness of breath or wheezing #8.5 grams betamethasone dipropionate 0.05 % 1 applic topical DAILY PRN rash 02/22/21 Rx topical cream #45 grams mometasone 50 mcg/actuation nasal 2 spray intranasal DAILY #17 grams 06/11/21 Rx spray Sleep Procedure A full night polysomnogram using the [email or web address] SleepiCIMS multi-channel system recorded the standard physiologic parameters including EEG, EOG, submentalis EMG, anterior tibialis EMG, EKG, body position, nasal and oral airflow using nasal pressure sensor and thermistor.? Respiratory parameters of chest and abdominal movements were recorded with Respiratory Inductance Plethysmography belts. Oxygen saturation was recorded by pulse oximetry. Video monitoring was also performed. Sleep stages, periodic limb movements, and EEG arousals were scored in 30 second epochs according to the criteria of the AASM Scoring Manual. The Apnea-Hypopnea Index was calculated using CMS guidelines for definition of hypopnea with 4% O2 desaturations while scoring respiratory events. Sleep Architecture The total recording time was 417.7 minutes.? The total sleep time was 284.0 minutes. Sleep latency was 69.4 minutes. REM latency was 323.5 minutes. Sleep efficiency was 68.0%. The patient had 19 awakenings for an awakening index of 4.0. Wake after sleep onset time was 64.5 minutes. The patient spent 23.0 minutes, 8.1% of total sleep time in Stage N1. The patient spent 203.5 minutes, 71.7% in Stage N2. The patient spent 42.5 minutes, 15.0% in Stage N3. The patient spent 15.0 minutes, 5.3% in Stage REM sleep. Respiratory Analysis The patient had 14 hypopneas and 14 obstructive apneas for an overall Apnea Hypopnea Index of 5.9. The REM Apnea Hypopnea Index was 36.0. The NREM Apnea Hypopnea Index was 4.2. The patient had a Central Apnea Hypopnea Index of 0. There were 42 Respiratory Effort Related Arousals resulting in a RERA index of 8.9 events per hour. The Respiratory Disturbance Index is 14.8 events per hour. There was no evidence of [place] Respirations. Arousals There were 112 total arousals for an arousal index of 23.7. There were 36 spontaneous arousals for an index of 7.6. There were 48 arousals due to respiratory events for an index of 10.1. There were 17 arousals due to periodic limb movements for an index of 3.6.? There were 12 arousals due to isolated limb movements for an index of 2.5. Periodic Limb Movements The patient had 37 isolated limb movements with an index of 7.8. The patient had 162 periodic limb movements with an index of 34.2, which is elevated (normal < 15). Patient had a total of 199 limb movements with a total limb movement index of 42.0. Oximetry Data The patient had an average oxygen saturation of 92.4% in sleep with a minimum oxygen saturation of 86.0% and a maximum oxygen saturation of 97.0%. The patient had 25 oxygen desaturations that were 4% or greater resulting in an Oxygen Desaturation Index of 5.3.? The patient spent 0.9 minutes, 0.2% of total sleep time with an oxygen saturation below 88%. Snoring Profile Moderate to loud snoring was present during this study. Cardiac Profile The EKG showed normal sinus rhythm with rare PACs/PVCs.?The patient had an average pulse rate of 68.0 bpm with a minimum pulse of rate of 57.0 bpm and a maximum pulse rate of 83.0 bpm.? EEG Profile No signs of seizure activity seen. Assessment and Plan Assessment and Plan (1) ALEXYS (obstructive sleep apnea): Code(s): G47.33 - Obstructive sleep apnea (adult) (pediatric) Status: Acute Assessment and Plan: The patient had an overall AHI of 5.9 with desaturation down to 86%. This is consistent with mild sleep apnea. Due to the patient's hypertension, she qualifies for PAP therapy. I recommend that the patient have a CPAP Titration study with the use of a hypnotic (Lunesta 2-3 mg or Ambien 5-10 mg) to ensure we obtain enough sleep data and find an optimal pressure. The patient had a significant number of limb movements during the study with the majority being periodic in nature. The patient's sleep history does not suggest Restless Leg Syndrome. I recommend that the patient have a serum ferritin drawn for evaluation of iron deficiency anemia. If the patient has a serum ferritin less than 75 ng/mL, I recommend starting a daily iron supplement and a Vitamin C supplement for better absorption. If the serum ferritin is greater than 75 ng/mL, I recommend starting a dopamine agonist and titrating the dose until symptoms resolve. There are nonpharmacological methods to treat limb movements including daily exercise, stretching calf muscles before bed, avoiding excessive amounts of caffeine and alcohol, vitamin B supplementation, magnesium lotion massaged into legs before bed, and use of a weighted blanket. Data The data obtained during this sleep study is adequate for interpretation. Certification This sleep study has been reviewed by a board certified sleep medicine physician.
[2024-02-02 10:54] VITALS: BMI 38.2
== END 2024-01-11 07:51 | disposition home or self-care (01) ==
LOC: CHSCSM 20:44
PROVIDERS: PCP Family Medicine; Visit Provider Family Medicine
DX: G47.33 Obstructive sleep apnea (adult) (pediatric) (principal)
CPT/HCPCS: 95810

== ENCOUNTER 2024-03-22 10:19 | Outpatient (CLI) | payer MEDICARE, SELFPAY ==
[2024-03-22 11:01] LABS: Hemoglobin A1C 6.3 % (<5.7)
[2024-03-22 11:23] LABS: Alanine Aminotransferase 36 U/L (14-59); Albumin Level 3.9 g/dL (3.4-5.0); Alkaline Phosphatase 82 U/L (46-116); Anion Gap 9 mmol/L (4-12); Aspartate Amino Transferase 22 U/L (15-37); Bilirubin,Total 0.5 mg/dL (0.00-1.00); Blood Urea Nitrogen 26 mg/dL (7-18); Calcium 9.9 mg/dL (8.5-10.1); Carbon Dioxide 28 mmol/L (21-32); Chloride 103 mmol/L (98-108); Cholesterol 159 mg/dL (0-200); Estimated Glomerular Filt Rate 45; Glucose 148 mg/dL (70-99); HDL Direct 43 mg/dL (40-60); LDL Cholesterol Calculated 69 mg/dL (<130); Osmolality Calculated 297 mOsm/kg (285-295); Potassium 4.9 mmol/L (3.5-5.1); Sodium 140 mmol/L (136-145); Thyroid Stimulating Hormone 1.65 uIU/mL (0.36-3.74); Total Protein 7.2 g/dL (6.4-8.2); Triglycerides 235 mg/dL (0-150)
== END 2024-03-22 10:20 | disposition home or self-care (01) ==
PROVIDERS: PCP Family Medicine; Visit Provider Family Medicine
DX: E11.9 Type 2 diabetes mellitus without complications (principal); E78.00 Pure hypercholesterolemia, unspecified; E03.9 Hypothyroidism, unspecified
CPT/HCPCS: 36415; 80053; 80061; 83036; 84443

== ENCOUNTER 2024-09-08 09:08 | Outpatient (CLI) | payer MEDICARE, BC, SELFPAY ==
[2024-09-08 09:31] LABS: Basophils Absolute Auto 0.11 K/mm3 (0.00-0.10); Basophils Percent Auto 1.6 % (0.0-1.0); Eosinophils Absolute Auto 0.31 K/mm3 (0.02-0.50); Eosinophils Percent Auto 4.5 % (1.0-6.0); Hematocrit 39.8 % (35.0-42.0); Hemoglobin 12.4 g/dL (11.7-13.8); Immature Granulocyte Absolute 0.01 K/mm3 (0.00-0.00); Immature Granulocyte Percent A 0.1 % (0.0-0.0); Lymphocytes Percent Auto 27.9 % (18.0-42.0); Mean Corpuscular HGB Conc 31.2 g/dL (32-36); Mean Corpuscular Hemoglobin 27.3 pg (27.0-31.0); Mean Corpuscular Volume 87.7 fL (78.0-102.0); Mean Platelet Volume 10.2 fl (9.2-11.8); Monocytes Absolute Auto 0.75 K/mm3 (0.10-0.90); Neutrophils Absolute Auto 3.74 K/mm3 (1.70-7.20); Neutrophils Percent Auto 54.9 % (50.0-70.0); Platelet Count Result 198 K/mm3 (150-420); Red Blood Count 4.54 M/mm3 (4.20-5.40); Red Cell Distribution Width 13.6 % (11.6-14.4); White Blood Count 6.8 K/mm3 (4.8-10.8)
--- OUTSIDE RECORDS SUMMARY | 2024-09-08 09:50 | XMS_ITS | CONTINUITY OF CARE DOCUMENT ---
Author Name marisabel petit Address Unknown Organization [facility] Address [address] [place] [address] [address] [place] [address] Phone [phone] Care Team Providers Care Cultured [employer] Maker Name Role Phone Con CHAPA, Kris Unavailable [phone]
--- OUTSIDE RECORDS SUMMARY | 2024-09-08 09:50 | XMS_ITS | Patient Health Record ---
Author Organization [facility] Address [address] [place], [place] [id number] Care Team Providers Care Mud Trucker Name Role Phone ISSAC CRAIG Unavailable [phone] Alex Yang Unavailable Unavailable Allergies Allergen (clinical drug ingredient) Drug/Non Drug Allergy documented on EMR Reaction Allergy Type Onset Date Status Product containing sulfonamide (product) (uncoded) Unknown Allergy 08/13/2013 active Reason For Referral No Information Medications Medication SIG (Take, Route, Frequency, Duration) Notes Start Date End Date Status aspirin 81 MG Effervescent Oral Tablet ORAL aspirin 81 MG Effervescent Oral TabletOriginal Medicationaspirin 81 MG Effervescent Oral Tablet *Reorder from [employer] for eRx and Interaction Alerts* 08/13/2013 Active Glucosamine Sulfate 500 MG Oral Tablet ORAL glucosamine sulfate 500 MG Oral TabletOriginal Medicationglucosamine sulfate 500 MG Oral Tablet *Reorder from [employer] for eRx and Interaction Alerts* 08/13/2013 Active fexofenadine hydrochloride 180 MG Oral Tablet [Nai] ORAL fexofenadine hydrochloride 180 MG Oral Tablet [Nai]Original Medicationfexofenadine hydrochloride 180 MG Oral Tablet [Nai] *Reorder from [employer] for eRx and Interaction Alerts* 08/13/2013 Active chondroitin sulfates 250 MG Oral Capsule ORAL chondroitin sulfates 250 MG Oral CapsuleOriginal Medicationchondroitin sulfates 250 MG Oral Capsule *Reorder from [employer] for eRx and Interaction Alerts* 08/13/2013 Active vitamin E 450 MG Oral Capsule ORAL vitamin E 450 MG Oral CapsuleOriginal Medicationvitamin E 450 MG Oral Capsule *Reorder from [employer] for eRx and Interaction Alerts* 08/13/2013 Active Immunizations Vaccine Route Administration Date Status Comme nts Influenza, high dose seasonal Unknown 01/21/2023 Admini stered Plan Of Treatment No Information Insurance Providers Payer Name Payer Address Payer Phone Subscriber Number Group Number Insured Name Patient Relationship to Insured Coverage Start Date Coverage End Date Medicare Part B [place] [address] [place] [address] [id number] TONI CR Self - patient is the insured [facility] ([facility]) ATTN CLAIMS [address] [place] [address] [id number] TONI CR Self - patient is the insured
[2024-09-08 12:17] LABS: Add Urine Microscopic? YES; Appearance Urine Clear (Clear); Bilirubin Urine Negative (Negative); Blood Urine Negative (Negative); Color Urine Light Yellow (Yellow); Glucose Urine UA Negative (Negative); Ketones Urine Negative (Negative); Leukocyte Esterase Ur 1+ (Negative); Nitrate Urine Negative (Negative); Protein Urine Negative (Negative); Urobilinogen Urine 0.2 mg/dL (0.2-1.0); pH Urine 5.5 (5.0-8.0)
[2024-09-08 12:29] LABS: Bacteria Urine Trace /hpf; RBC Urine None seen /hpf (0-2); Squamous Epithelial Cell Urine Few /hpf (Few)
[2024-09-08 12:38] LABS: Albumin Level 4.3 g/dL (3.5-5.1); Anion Gap 10 mmol/L (4-12); Blood Urea Nitrogen 24 mg/dL (7-17); Carbon Dioxide 24 mmol/L (22-30); Chloride 104 mmol/L (98-107); Estimated Glomerular Filt Rate 50; Glucose 133 mg/dL (65-110); Osmolality Calculated 292 mOsm/kg (285-295); Phosphorus 4.2 mg/dL (2.5-4.5); Potassium 4.6 mmol/L (3.4-5.0); Sodium 138 mmol/L (137-145)
== END 2024-09-08 09:09 | disposition home or self-care (01) ==
LOC: CHSLAB 09:12
PROVIDERS: PCP Family Medicine; Visit Provider Internal Medicine Nephrology
DX: I12.9 Hypertensive chronic kidney disease with stage 1 through stage 4 chronic kidney disease, or unspecified chronic kidney disease (principal)
CPT/HCPCS: 36415; 80069; 81001; 85025

== ENCOUNTER 2025-01-13 10:22 | Outpatient (CLI) | payer MEDICARE, SELFPAY ==
[2025-01-13 10:48] LABS: Hemoglobin A1C 6.4 % (<5.7)
[2025-01-13 11:19] LABS: Alanine Aminotransferase 26 U/L (6-35); Albumin Level 4.5 g/dL (3.5-5.1); Alkaline Phosphatase 65 U/L (38-126); Anion Gap 10 mmol/L (4-12); Aspartate Amino Transferase 26 U/L (14-36); Bilirubin,Total 0.7 mg/dL (0.2-1.3); Blood Urea Nitrogen 21 mg/dL (7-17); Calcium 10.2 mg/dL (8.4-10.2); Carbon Dioxide 28 mmol/L (22-30); Chloride 103 mmol/L (98-107); Cholesterol 151 mg/dL (0-200); Estimated Glomerular Filt Rate 43; Glucose 145 mg/dL (65-110); HDL Direct 48 mg/dL; Osmolality Calculated 298 mOsm/kg (285-295); Potassium 4.9 mmol/L (3.4-5.0); Sodium 141 mmol/L (137-145); Total Protein 7.9 g/dL (6.3-8.2); Triglycerides 306 mg/dL (<150)
--- OUTSIDE RECORDS SUMMARY | 2025-01-13 11:28 | XMS_ITS | Clinical Summary ---
Author Organization [facility] Address [facility] [place] [address] Care Team Providers Care Cork Cutter Name Role Phone Unavailable Primary Care Provider Unavailabl e Social History Tobacco Use Types Packs/Day Years Used Date Smoking Tobacco: Never Assessed Comments Unknown Sex and Gender Information Value Date Recorded Sex Assigned at Not on file Legal Sex Female 9:27 PM CDT Gender Identity Not on file Sexual Orientation Not on file Plan of Treatment Health Maintenance Due Date Last Done Comments DTaP, Tdap and Td Vaccines ( 1 - Tdap) 1963 Pneumococcal Vaccine: 50+ Ye ars (1 of 1 - PCV) 1994 Zoster Vaccines (1 of 2) 1994 Dexa Scan (General) 2009 RSV Immunization or 60+ Years (1 - 1-dose 75+ series) 2019 COVID-19 Vaccine ( - 2023-2 5 season) 2024 Influenza Adult (#1) 2024 Meningococcal B Vaccine Aged Out No l onger eligible based on patient's age to complete this topic Meningococcal Vaccine Aged Out No rick nini eligible based on patient's age to complete this topic RSV Immunizations Under 20 Months Aged Out No longer eligible based on patient's age to complete this topic
[2025-01-13 11:49] LABS: Thyroid Stimulating Hormone 2.580 uIU/mL (0.465-4.680)
== END 2025-01-13 10:23 | disposition home or self-care (01) ==
LOC: CHSLAB 10:26
PROVIDERS: PCP Family Medicine; Visit Provider Family Medicine
DX: E11.9 Type 2 diabetes mellitus without complications (principal); E78.00 Pure hypercholesterolemia, unspecified; E03.9 Hypothyroidism, unspecified
CPT/HCPCS: 36415; 80053; 80061; 83036; 84443